=== PATIENT | male | born 1990 ===

== ENCOUNTER 2017-06-29 04:28 | Inpatient (IN) ==
[2017-06-29 05:33] LABS: Basophils % 0.3 % (0.0-0.8); Eosinophils % 0.3 % (0.00-10.9); Hematocrit 40.9 VOL% (42.0-52.0); Hemoglobin 14.5 GM/DL (14.0-18.0); Immature Granulocytes % 0.4 %; Immature Granulocytes Absolute 0.03 #; Lymphocytes # 2.3 10*3/uL (1.4-4.0); Mean Corpuscular HGB Conc 35.5 GM/DL (32-36); Mean Corpuscular Hemoglobin 31 PG (27-34); Mean Corpuscular Volume 86.3 FL (87-102); Mean Platelet Volume 9.3 FL (9.6-12.0); Monocytes # 0.4 10*3/uL (0.11-0.8); Monocytes % 5.2 % (1.7-12.7); Neutrophils # 4.5 10*3/uL (1.4-7.4); Neutrophils % 61.8 % (38.7-73.9); Platelet Count 173 T/CUMM (130-400); Red Blood Count 4.74 MC/CUMM (3.8-5.5); Red Cell Distribution Width 12.9 % (9.3-17.3); White Blood Count 7.3 T/CUMM (4-12)
[2017-06-29 05:54] LABS: Albumin 3.9 G/DL (3.4-5.0); Bilirubin,Total 0.4 MG/DL (0.2-1.0); Potassium 3.7 MMOL/L (3.5-5.1); Total Protein 8.1 G/DL (6.4-8.3)
[2017-06-29 06:57] LABS: Barbiturates Screen,Urine Negative (Negative); Benzodiazepines Screen,Urine Positive (Negative); Cannabinoid Screen,Urine Negative (Negative); Opiate Screen,Urine Negative (Negative); Phencyclidine Screen,Urine Negative (Negative)
[2017-06-29] MEDS ORDERED: ONDANSETRON 4 MG/2 ML VIAL IV PRN (08:30)
[2017-06-29] MEDS ORDERED: NICOTINE 21 MG/24 HR PATCH TRANSDERM PRN (08:30)
[2017-06-29] MEDS ORDERED: LORazepam 2 MG/1 ML VIAL IV PRN (08:39)
[2017-06-29] MEDS: PANTOPRAZOLE 40 MG TABLET PO SCH (09:09)
[2017-06-29] MEDS: SODIUM CHLORIDE 0.9% 1,000 ML IV SCH ×2 (09:13→17:46)
[2017-06-29 09:14] LABS: Folate 10.3 NG/ML (5.4-24.0)
[2017-06-29 15:37] LABS: Apearance,Urine CLEAR (Clear); Bilirubin,Urine Negative (Negative); Blood, Urine Small mg/dL (Negative); Glucose,Urine (UA) Negative (Negative); Ketones,Urine Negative (Negative); Mucus,Urine Occasional /LPF (Occasional); Nitrite,Urine Negative (Negative); Protein,Urine Negative; RBC,Urine 1 /HPF (0-4); Urine Color Yellow (Yellow); Urine Specific Gravity 1.015 (1.001-1.035); Urine Urobilinogen < 2.0 EU/DL (0.2-1.0); WBC,Urine 4 /HPF (0-6)
[2017-06-30] MEDS: SODIUM CHLORIDE 0.9% 1,000 ML IV SCH ×3 (01:20→17:56)
[2017-06-30 04:23] LABS: Basophils % 0.3 % (0.0-0.8); Eosinophils # 0.1 10*3/uL (0.0-0.87); Eosinophils % 0.9 % (0.00-10.9); Hematocrit 40.5 VOL% (42.0-52.0); Hemoglobin 13.6 GM/DL (14.0-18.0); Immature Granulocytes % 0.4 %; Immature Granulocytes Absolute 0.03 #; Lymphocytes # 2.7 10*3/uL (1.4-4.0); Mean Corpuscular HGB Conc 33.6 GM/DL (32-36); Mean Corpuscular Hemoglobin 30 PG (27-34); Mean Corpuscular Volume 88.4 FL (87-102); Mean Platelet Volume 9.2 FL (9.6-12.0); Monocytes # 0.7 10*3/uL (0.11-0.8); Monocytes % 8.5 % (1.7-12.7); Neutrophils # 4.2 10*3/uL (1.4-7.4); Neutrophils % 54.9 % (38.7-73.9); Platelet Count 156 T/CUMM (130-400); Red Blood Count 4.58 MC/CUMM (3.8-5.5); White Blood Count 7.7 T/CUMM (4-12)
[2017-06-30 04:56] LABS: Albumin 3.5 G/DL (3.4-5.0); Bilirubin,Total 0.8 MG/DL (0.2-1.0); Calcium 7.8 MG/DL (8.5-10.1); Osmolality,Calculated 279.3 MOS/KG (273-304); Potassium 3.9 MMOL/L (3.5-5.1); Total Protein 7.3 G/DL (6.4-8.3)
[2017-06-30] MEDS: PANTOPRAZOLE 40 MG TABLET PO SCH (08:38)
[2017-07-01] MEDS: SODIUM CHLORIDE 0.9% 1,000 ML IV SCH ×3 (02:00→18:40)
[2017-07-01] MEDS ORDERED: ACETAMINOPHEN 325 MG TABLET PO PRN (02:45)
[2017-07-01 05:59] LABS: Basophils % 0.3 % (0.0-0.8); Eosinophils # 0.1 10*3/uL (0.0-0.87); Hematocrit 37.8 VOL% (42.0-52.0); Hemoglobin 12.8 GM/DL (14.0-18.0); Immature Granulocytes % 0.6 %; Immature Granulocytes Absolute 0.05 #; Lymphocytes # 2.7 10*3/uL (1.4-4.0); Lymphocytes % 34.5 % (21.2-54.2); Mean Corpuscular HGB Conc 33.9 GM/DL (32-36); Mean Corpuscular Hemoglobin 30 PG (27-34); Mean Corpuscular Volume 88.7 FL (87-102); Mean Platelet Volume 9.4 FL (9.6-12.0); Monocytes # 0.6 10*3/uL (0.11-0.8); Monocytes % 7.1 % (1.7-12.7); Neutrophils # 4.4 10*3/uL (1.4-7.4); Neutrophils % 56.5 % (38.7-73.9); Platelet Count 145 T/CUMM (130-400); Red Blood Count 4.26 MC/CUMM (3.8-5.5); Red Cell Distribution Width 12.8 % (9.3-17.3); White Blood Count 7.8 T/CUMM (4-12)
[2017-07-01 06:30] LABS: Osmolality,Calculated 282.1 MOS/KG (273-304); Potassium 3.5 MMOL/L (3.5-5.1)
[2017-07-01] MEDS: PANTOPRAZOLE 40 MG TABLET PO SCH (09:40)
[2017-07-01 17:27] VITALS: BP 130/64
== END 2017-07-01 19:30 | disposition home or self-care (01) | DRG 101 ==
LOC: EDBD → EDUNIT# → N.ED 04:28 → N.EDINP 06:36 → N.ICU 09:44 → N.5E 06-30 14:07
PROVIDERS: ADMIT Internal Medicine; ATTEND Internal Medicine